=== PATIENT | female | born 1955 | race Caucasian/White ===

== ENCOUNTER 2016-11-15 07:37 | Day surgery (SDC) | payer BC ==
[2016-11-10 14:54] LABS: HEMATOCRIT 39.7 % (36.0-48.0)
[2016-11-10 15:05] LABS: BUN (BLOOD UREA NITROGEN) 29 MG/DL (6-23); CALCIUM, SERUM 9.5 MG/DL (8.5-10.4); CHLORIDE, SERUM 104 MMOL/L (96-112); CO2 (CARBON DIOXIDE) 34 MMOL/L (24-34); CREATININE 1.07 MG/DL (0.55-1.02); GFR AFRICAN AMERICAN 64 ML/MIN (>=60); GFR NON AFRICAN AMERICAN 56 ML/MIN (>=60); GLUCOSE, SERUM 104 MG/DL (60-99); POTASSIUM, SERUM 4.2 MMOL/L (3.5-5.3); SODIUM, SERUM 142 MMOL/L (135-148)
--- NOTE | ~2016-11-15 | OP ---
Record Of Operation [facility] [address] [place]. 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 POSTOPERATIVE DIAGNOSIS: Large multinodular thyroid with tissue replaced by atypical lymphoid infiltrate suspicious for lymphoma on frozen section. PROCEDURES: 1. Partial thyroid isthmusectomy. 2. NIMs monitoring of the superior and recurrent laryngeal nerve. SURGEON: Regina Ordaz M.D. ANESTHESIA: General. COMPLICATIONS: None. COUNTS: All counts were correct following the procedure. ESTIMATED BLOOD LOSS: 25 mL. PREOPERATIVE INFORMED CONSENT: We discussed the risks and benefits of the surgery including, but not limited to bleeding, infection, possible loss of airway and , and consent is on the chart. PROCEDURE IN DETAIL: The patient was taken to the operating suite, and placed on the operating room table in the supine position. General endotracheal anesthesia was initiated without incident using a GlideScope. Following this, the neck and chest were cleaned, and prepped and draped in the usual sterile fashion. Following this, a transverse incision was marked out and incision was performed using electrocautery. The platysmal flaps were raised superiorly and inferiorly due to the diffuse enlargement of the thyroid, and the midline fascia was divided using electrocautery dissecting down onto the midportion of the thyroid capsule. There was noted to be dense adherence of the thyroid capsule to the strap musculature. Starting on left hand side, the strap muscles were carefully dissected off the underlying thyroid, had a lot of hypervascularity, and the feeding vessels were cauterized using bipolar as well as Harmonic Scalpel. The thyroid extended all the way to the carotid sheath and it was firm, and appeared to have diffuse infiltration into the strap musculature. There was a small area of the thyroid tissue adherent to the strap muscles, it was removed, and sent for frozen section, and came back consistent with atypical lymphoid infiltrate. As the result of these findings, the partial isthmusectomy of the thyroid was performed using 15 blade scalpel, and the specimen was sent, was noted to have a real fleshy appearance to the thyroid parenchyma consistent with a lymphoma. This was sent fresh for lymphoma workup and the touch prep showed consistent with atypical lymphoid tissue consistent with a lymphoma, and therefore the procedure was then decided at this point to be terminated, so the wound was copiously irrigated with sterile saline. The bleeding sites Record Of [address] [place]. [address] NAME: JAVIER PHELPS : 53 STATUS : REG [facility] [place] PAT#: [id number] AGE: 61 ADM/REG DATE : 11/15/16 MR#: [id number] REPORT SERV DATE: 11/15/16 DICTATED BY: REGINA ORDAZ DATE: 11/15/16 REPORT STATUS : Draft TRANSCRIBED BY: DIANE DATE: 11/15/16 were cauterized using bipolar cautery. Midline fascia was closed using 3-0 Vicryl, and the platysmal layer was closed using running 4-0 Vicryl followed by skin closure using running 4 0 PDS subcuticular closure followed by benzoin, Steri-Strips, Telfa, and Tegaderm. The patient was then awaken from anesthesia, and taken to the recovery room in stable condition. MARSHA/DIANE Regina Ordaz M.D. / [id number] CC: Maryana Huber
[~2016-11-15 07:37] MED LIST: AMB10 PO; ASAB PO; ASMANEX200 INH; BREO ELLIPTA 21 EACH INH; CELEXA20 PO; COMBIVENT RESPIM4 GM INH; GLUCPH PO; LOTREL1 CA4 PO; PRILO PO; PRIN2.5 PO; SYNTHROID200 MCG PO; VITAMIN D31000 UNIT PO; Z300 PO
[2016-11-15 09:57] LABS: PTH (INTRAOPERATIVE) 43.5 PG/ML (10.0-65.0); PTH TAT 0 Hrs 21 Mins
[2016-12-07] MEDS ORDERED: SINGULAIR1 PO (12:29)
[2016-12-07] MEDS ORDERED: ZOFRANODT8 PO (12:33)
[2017-01-15] MEDS ORDERED: *UNABLE1 (19:18)
[2017-01-15] MEDS ORDERED: Z300 PO (21:02)
[2017-01-15] MEDS ORDERED: LOTREL1 CA4 PO (21:03)
[2017-01-15] MEDS ORDERED: ASAB PO (21:04)
[2017-01-15] MEDS ORDERED: VITAMIN D31000 UNIT PO (21:08)
[2017-01-15] MEDS ORDERED: CELEXA20 PO (21:09)
[2017-01-15] MEDS ORDERED: SINGULAIR1 PO (21:10)
[2017-01-15] MEDS ORDERED: ZOFRANODT8 PO (21:10)
[2017-01-15] MEDS ORDERED: NORCO1 TA1 PO (21:13)
[2017-01-15] MEDS ORDERED: SYNTHROID200 MCG PO (21:14)
[2017-01-15] MEDS ORDERED: PRIN2.5 PO (21:15)
[2017-01-15] MEDS ORDERED: GLUCPH PO (21:16)
[2017-01-15] MEDS ORDERED: AMB10 PO (21:17)
[2017-01-15] MEDS ORDERED: PRILO PO (21:17)
[2017-01-15] MEDS ORDERED: COLCRYS0.6 MG PO (21:18)
[2017-01-15] MEDS ORDERED: VESICARE10 MG PO (21:18)
[2017-01-15] MEDS ORDERED: LEVAQUIN750 MG PO (21:20)
[2017-01-16] MEDS ORDERED: PRED50B PO (15:23)
[2017-01-16] MEDS ORDERED: CHEMOTHERAPY IV (15:23)
[2017-01-16] MEDS ORDERED: FORTAMET500 MG PO (15:24)
[2017-01-16] MEDS ORDERED: FORTAMET1000 MG PO (15:24)
[2017-01-16] MEDS ORDERED: PCET PO (15:29)
[2017-01-24] MEDS ORDERED: QUESLITE PO (10:05)
[2017-01-24] MEDS ORDERED: CIP5 PO (10:06)
[2017-01-24] MEDS ORDERED: MONODOX100 MG PO (10:06)
[2017-01-24] MEDS ORDERED: CASTOR TOP (10:07)
[2017-01-24] MEDS ORDERED: OXYCOD PO (10:16)
[2017-03-10] MEDS ORDERED: FLAG500TAB PO (01:38)
[2017-03-10] MEDS ORDERED: LOTREL1 CA4 PO (01:38)
[2017-03-10] MEDS ORDERED: Z300 PO (01:38)
[2017-03-10] MEDS ORDERED: CELEXA20 PO (01:39)
[2017-03-10] MEDS ORDERED: SINGULAIR1 PO (01:40)
[2017-03-10] MEDS ORDERED: AMB10 PO (01:40)
[2017-03-10] MEDS ORDERED: PCET PO (01:40)
[2017-03-10] MEDS ORDERED: PRILO PO (01:41)
[2017-03-10] MEDS ORDERED: CHEMOTHERAPY IV (01:44)
[2017-03-10] MEDS ORDERED: VESICARE10 MG PO (01:45)
[2017-03-10] MEDS ORDERED: FORTAMET1000 MG PO (01:45)
[2017-03-10] MEDS ORDERED: FORTAMET500 MG PO (01:46)
[2017-03-10] MEDS ORDERED: VITAMIN D31000 UNIT PO (01:47)
[2017-03-10] MEDS ORDERED: ASAB PO (01:47)
[2017-03-10] MEDS ORDERED: SYNTHROID200 MCG PO (01:48)
[2017-03-10] MEDS ORDERED: ZOFRANODT8 PO (01:49)
[2017-03-10] MEDS ORDERED: IMOD PO (01:50)
[2017-03-12] MEDS ORDERED: CEFT2 PO (12:51)
[2017-03-26] MEDS ORDERED: PRED50B PO (11:07)
[2017-03-28] MEDS ORDERED: DURICEF PO (15:35)
[2017-03-28] MEDS ORDERED: T PO (15:40)
[2017-03-28] MEDS ORDERED: SENTAB PO (15:41)
== END 2016-11-15 15:56 | disposition home or self-care (01) ==
LOC: SDC 07:37
PROVIDERS: Otolaryngology
PROC: 0GBG0ZZ Excision of Left Thyroid Gland Lobe, Open Approach (ICD-10-PCS; principal; 2016-11-15 08:45)
DX: C85.11 Unspecified B-cell lymphoma, lymph nodes of head, face, and neck (principal); I10 Essential (primary) hypertension; J45.909 Unspecified asthma, uncomplicated; G47.33 Obstructive sleep apnea (adult) (pediatric); K21.9 Gastro-esophageal reflux disease without esophagitis; F41.9 Anxiety disorder, unspecified; F32.9 Major depressive disorder, single episode, unspecified; E78.00 Pure hypercholesterolemia, unspecified; E11.9 Type 2 diabetes mellitus without complications; E06.3 Autoimmune thyroiditis; E66.01 Morbid (severe) obesity due to excess calories; Z68.39 Body mass index [BMI] 39.0-39.9, adult; Z98.890 Other specified postprocedural states; Z79.82 Long term (current) use of aspirin; Z79.51 Long term (current) use of inhaled steroids; Z79.84 Long term (current) use of oral hypoglycemic drugs; Z79.899 Other long term (current) drug therapy; Z99.89 Dependence on other enabling machines and devices; Z87.81 Personal history of (healed) traumatic fracture
CPT/HCPCS: 80048; 82962; 83970; 85014; 85018; 88305; 88331; 88333; 88341; 88342; 88360; 93005; A9270-GY; J0330; J0690; J1170; J2250; J2370; J2405; J2710; J3010

== ENCOUNTER 2016-12-14 05:57 | Day surgery (SDC) | payer BC ==
--- NOTE | ~2016-12-14 | OP ---
Record Of Operation [facility] [address] [place]. [address] NAME: JAVIER PHELPS : 53 STATUS : [facility]#: [id number] AGE: 61 ADM/REG DATE : 12/14/16 MR#: [id number] REPORT SERV DATE: 12/15/16 DICTATED BY: DARRYL LOFTON DATE: 12/15/16 REPORT STATUS : Draft TRANSCRIBED BY: MODL DATE: 12/15/16 DATE OF PROCEDURE: 12/14/2016 SURGEON: Darryl Lofton M.D. RESIDENT: Juan Brar M.D. PREOPERATIVE DIAGNOSIS: Lymphoma and need for central access. POSTOPERATIVE DIAGNOSIS: Lymphoma and need for central access. PROCEDURE: Port-A-Cath placement. ANESTHESIA: Total IV anesthesia with local. BLOOD LOSS: Minimal. FLUIDS: Approximately 500 mL of crystalloid. DESCRIPTION OF OPERATION: After informed consent was obtained, the patient was brought back to the operating suite, placed in the supine position. The patient's neck was prepped and draped in normal sterile fashion. A time-out was performed, the patient was properly identified, preoperative antibiotics were given. The patient was placed in Trendelenburg, ultrasound was used to identify the right internal jugular vein. The area of the right internal jugular vein was anesthetized with lidocaine and Marcaine. Local anesthetic was then used to anesthetize the chest wall two fingerbreadths below the clavicle and that the catheter would take to the neck. At this point under ultrasound guidance the right internal jugular vein was accessed with an 18-gauge needle. Wire was then passed through the needle under fluoroscopic visualization within the superior vena cava in good position. A 2.5 cm incision was made two fingerbreadths below the clavicle on the chest wall. Dissection was carried through the subcutaneous fat. A pocket was carried inferiorly for the 6-[place] port. Two Vicryl sutures were placed superiorly and placed through the port. The port was then placed within pocket. A sheath and dilator were now passed over the wire after a skin schuyler was made at the neck incision. The dilator and wire were removed. The tunnel was then used to tunnel of the catheter from the neck incision down to the chest wall. The catheter was then placed through the sheath at 15 cm. The catheter was cut to length and attached to the port and secured with port securing device. The port was then tied down to the chest wall with Vicryl sutures. The port was then aspirated and flushed . The tip of the catheter was visualized under fluoroscopic visualization and was at the atriocaval junction. The incision was then closed with 3-0 Vicryl. Sterile dressing was applied. The patient tolerated the procedure well. DICTATED BY: Juan Brar MD Record Of Operation [facility] [address] [facility] [place]. [address] NAME: JAVIER PHELPS : 53 STATUS : [facility]#: [id number] AGE: 61 ADM/REG DATE : 12/14/16 MR#: [id number] REPORT SERV DATE: 12/15/16 DICTATED BY: DARRYL LOFTON DATE: 12/15/16 REPORT STATUS : Draft TRANSCRIBED BY: DIANE DATE: 12/15/16 KEIRY/DIANE Darryl Lofton M.D. / [id number] CC: Maryana Davis Mercedes V.
[~2016-12-14 05:57] MED LIST changes: +SINGULAIR1 PO; +ZOFRANODT8 PO
[2017-01-15] MEDS ORDERED: *UNABLE1 (19:18)
[2017-01-15] MEDS ORDERED: Z300 PO (21:02)
[2017-01-15] MEDS ORDERED: LOTREL1 CA4 PO (21:03)
[2017-01-15] MEDS ORDERED: ASAB PO (21:04)
[2017-01-15] MEDS ORDERED: VITAMIN D31000 UNIT PO (21:08)
[2017-01-15] MEDS ORDERED: CELEXA20 PO (21:09)
[2017-01-15] MEDS ORDERED: SINGULAIR1 PO (21:10)
[2017-01-15] MEDS ORDERED: ZOFRANODT8 PO (21:10)
[2017-01-15] MEDS ORDERED: NORCO1 TA1 PO (21:13)
[2017-01-15] MEDS ORDERED: SYNTHROID200 MCG PO (21:14)
[2017-01-15] MEDS ORDERED: PRIN2.5 PO (21:15)
[2017-01-15] MEDS ORDERED: GLUCPH PO (21:16)
[2017-01-15] MEDS ORDERED: PRILO PO (21:17)
[2017-01-15] MEDS ORDERED: AMB10 PO (21:17)
[2017-01-15] MEDS ORDERED: VESICARE10 MG PO (21:18)
[2017-01-15] MEDS ORDERED: COLCRYS0.6 MG PO (21:18)
[2017-01-15] MEDS ORDERED: LEVAQUIN750 MG PO (21:20)
[2017-01-16] MEDS ORDERED: PRED50B PO (15:23)
[2017-01-16] MEDS ORDERED: CHEMOTHERAPY IV (15:23)
[2017-01-16] MEDS ORDERED: FORTAMET500 MG PO (15:24)
[2017-01-16] MEDS ORDERED: FORTAMET1000 MG PO (15:24)
[2017-01-16] MEDS ORDERED: PCET PO (15:29)
[2017-01-24] MEDS ORDERED: QUESLITE PO (10:05)
[2017-01-24] MEDS ORDERED: MONODOX100 MG PO (10:06)
[2017-01-24] MEDS ORDERED: CIP5 PO (10:06)
[2017-01-24] MEDS ORDERED: CASTOR TOP (10:07)
[2017-01-24] MEDS ORDERED: OXYCOD PO (10:16)
[2017-03-10] MEDS ORDERED: Z300 PO (01:38)
[2017-03-10] MEDS ORDERED: FLAG500TAB PO (01:38)
[2017-03-10] MEDS ORDERED: LOTREL1 CA4 PO (01:38)
[2017-03-10] MEDS ORDERED: CELEXA20 PO (01:39)
[2017-03-10] MEDS ORDERED: AMB10 PO (01:40)
[2017-03-10] MEDS ORDERED: SINGULAIR1 PO (01:40)
[2017-03-10] MEDS ORDERED: PCET PO (01:40)
[2017-03-10] MEDS ORDERED: PRILO PO (01:41)
[2017-03-10] MEDS ORDERED: CHEMOTHERAPY IV (01:44)
[2017-03-10] MEDS ORDERED: FORTAMET1000 MG PO (01:45)
[2017-03-10] MEDS ORDERED: VESICARE10 MG PO (01:45)
[2017-03-10] MEDS ORDERED: FORTAMET500 MG PO (01:46)
[2017-03-10] MEDS ORDERED: VITAMIN D31000 UNIT PO (01:47)
[2017-03-10] MEDS ORDERED: ASAB PO (01:47)
[2017-03-10] MEDS ORDERED: SYNTHROID200 MCG PO (01:48)
[2017-03-10] MEDS ORDERED: ZOFRANODT8 PO (01:49)
[2017-03-10] MEDS ORDERED: IMOD PO (01:50)
[2017-03-12] MEDS ORDERED: CEFT2 PO (12:51)
[2017-03-26] MEDS ORDERED: PRED50B PO (11:07)
[2017-03-28] MEDS ORDERED: DURICEF PO (15:35)
[2017-03-28] MEDS ORDERED: T PO (15:40)
[2017-03-28] MEDS ORDERED: SENTAB PO (15:41)
== END 2016-12-14 14:00 | disposition home or self-care (01) ==
LOC: SDC 05:57
PROVIDERS: Specialist
PROC: 05HM33Z Insertion of Infusion Device into Right Internal Jugular Vein, Percutaneous Approach (ICD-10-PCS; 2016-12-14)
PROC: B513YZA Fluoroscopy of Right Jugular Veins using Other Contrast, Guidance (ICD-10-PCS; 2016-12-14)
PROC: 0JH60XZ Insertion of Tunneled Vascular Access Device into Chest Subcutaneous Tissue and Fascia, Open Approach (ICD-10-PCS; principal; 2016-12-14 08:00)
DX: C85.90 Non-Hodgkin lymphoma, unspecified, unspecified site (principal); I10 Essential (primary) hypertension; G47.33 Obstructive sleep apnea (adult) (pediatric); E11.9 Type 2 diabetes mellitus without complications; K21.9 Gastro-esophageal reflux disease without esophagitis; Z79.82 Long term (current) use of aspirin; Z99.89 Dependence on other enabling machines and devices; Z79.899 Other long term (current) drug therapy; Z98.890 Other specified postprocedural states
CPT/HCPCS: 71010; 77001; 80048; 82962; 85025; 93005; C1788; J0690; J3010; Q9967